=== PATIENT | male | born 1960 | race Caucasian/White ===

== ENCOUNTER → 2023-02-01 08:14 | Outpatient (REF) | payer OTHER, SELFPAY | LOC: ANHLAB 08:14 | PROVIDERS: PCP Family Medicine; Visit Provider Plastic Surgery | DX: C44.629 Squamous cell carcinoma of skin of left upper limb, including shoulder (principal); L82.1 Other seborrheic keratosis | CPT/HCPCS: 88305 ==

== ENCOUNTER 2024-03-22 05:50 | Day surgery (SDC) | payer OTHER, SELFPAY ==
[2024-01-20 15:17] VITALS: BMI 29.0
[2024-03-05 11:16] VITALS: BMI 29.4
--- NOTE | 2024-03-21 15:02 | P.PNAN_ITS ---
Anes - Initial Pre Proc Eval Procedure: Operation Date: 03/22/24 07:30 Proposed Procedures p Diagnostic Colonoscopy - Juan Antonio Morse MD Date/Time: 03/21/24 15:02 Surgeon: Juan Antonio Morse MD Pre Op Diagnosis: Personal HX of Colon Polyps. Family HX of Colon Patient Data Age: 63 Gender: M Height: 1.73 m Weight: 87.8 kg Allergies Allergy/AdvReac Type Severity Reaction Status Date / Time No Known Allergies Allergy Mild Verified 03/22/24 06:25 Home Medications ?Medication ?Instructions ?Recorded ?Confirmed ?Type fqanvndh-hmwh-fodfp acid 400 1 tablet PO DAILY 10/25/22 03/22/24 History mcg-lycopene 300 mcg-ginkgo 120 mg tablet (One-A-Day Men's 50 Plus (with ginkgo)) omeprazole 20 mg capsule,delayed 20 mg PO DAILY PRN Acid Reflux 03/05/24 03/22/24 History release atenolol 50 mg tablet 50 mg PO DAILY #90 tabs 03/21/24 03/22/24 Rx benazepril 20 mg tablet (Lotensin) 20 mg PO DAILY #90 tabs 03/21/24 03/22/24 Rx rosuvastatin 20 mg tablet 20 mg PO DAILY #90 tabs 03/21/24 03/22/24 Rx Patient hx anesthesia problems: none Family hx anesthesia problems: none Results Review: All pre-operative results and documents have been reviewed as part of the pre-op erative evaluation. [facility] Past Medical History Medical History (Updated 03/21/24 @ 15:03 by Will Gregory DO) History of skin cancer Mixed hyperlipidemia Essential (primary) hypertension Changing skin lesion BMI 28.0-28.9,adult BMI 29.0-29.9,adult Screening for prostate cancer Family History Family History Father Hypertension Malignant neoplasm of prostate Dialysis patient Sibling Hypertension Carcinoma of colon Epiglottitis Mother Carcinoma of colon Other Family history of hypercholesterolemia Social History Social History Smoking status: Never smoker Second hand tobacco smoke exposure: No Alcohol intake: current Drinks per week: 6 Alcohol use details: beer Substance use: never Substance use type: does not use Lack of Transportation: No Lack of Food: Never True Current Housing: I Have Housing Concerned About Future Housing: No Difficulty Paying Gas/Electric Bills: No Difficulty Paying for Meds: No Currently Unemployed: No Education: High School Diploma/GED Difficulty w/ Childcare or Family Care: No Living arrangements: with family Occupation/Education: retired 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 Gender identity (if verbalized by the patient): Male Spiritual care concerns: No Anes - Eval Final PreProcedure Day of Procedure 03/21/24 15:02 Patient weight: overweight Heart: regular rate and rhythm Lungs: clear to auscultation Airway: Mallampati scale class II Neurological: alert and oriented Last oral intake: >/= 8 hours ASA classification: II Emergent: no Anesthetic plan: proceed Anesthesia type and monitoring: general GIVS and standard monitoring Results Review: All pre-operative results and documents have been reviewed as part of the pre- operative evaluation. Informed Consent: The patient's anesthetic plan and its attendant risks and benefits were discussed with the patient/family/POA. Questions were solicited and answers provided to the satisfaction of the patient/family/POA.
[2024-03-22 06:27] VITALS: BP 117/79; PULSE 65; RESP 16; TEMP 36.6; O2SAT 98; BMI 29.0
[2024-03-22] MEDS: LACTATED RINGERS 1,000 ML 150 ML IV CONT (06:45)
--- NOTE | 2024-03-22 07:16 | PM.HPGS ---
History of Present Illness History of Present Illness Consent: Risks, benefits, and alternatives have been discussed and questions answered. Patient agrees to proceed with procedure. Chief complaint: Personal HX of Colon Polyps. Family HX of Colon Narrative: Mohit Her is a 63 year old male colonoscopy. Patient has a history of this most recently 2017. Family history is significant both brother and mother have had colon cancer. Patient reports his own weight appetite and bowel movements are normal. He denies abdominal pain. Patient has had no bleeding. Review of Systems Review of Systems: All systems reviewed & are unremarkable except as noted in HPI and below PMFSH Past Medical History Medical History (Updated 03/22/24 @ 07:18 by Juan Antonio Morse MD) History of skin cancer Mixed hyperlipidemia Essential (primary) hypertension Changing skin lesion BMI 28.0-28.9,adult BMI 29.0-29.9,adult Screening for prostate cancer Family History Family History Father Hypertension Malignant neoplasm of prostate Dialysis patient Sibling Hypertension Carcinoma of colon Epiglottitis Mother Carcinoma of colon Other Family history of hypercholesterolemia Social History Social History Smoking status: Never smoker Second hand tobacco smoke exposure: No Alcohol intake: current Drinks per week: 6 Alcohol use details: beer Substance use: never Substance use type: does not use Lack of Transportation: No Lack of Food: Never True Current Housing: I Have Housing Concerned About Future Housing: No Difficulty Paying Gas/Electric Bills: No Difficulty Paying for Meds: No Currently Unemployed: No Education: High School Diploma/GED Difficulty w/ Childcare or Family Care: No Living arrangements: with family Occupation/Education: retired 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 Gender identity (if verbalized by the patient): Male Spiritual care concerns: No Meds Home Medications and Allergies Home Medications ?Medication ?Instructions ?Recorded ?Confirmed ?Type xrdpusrf-vzup-chami acid 400 1 tablet PO DAILY 10/25/22 03/22/24 History mcg-lycopene 300 mcg-ginkgo 120 mg tablet (One-A-Day Men's 50 Plus (with ginkgo)) omeprazole 20 mg capsule,delayed 20 mg PO DAILY PRN Acid Reflux 03/05/24 03/22/24 History release atenolol 50 mg tablet 50 mg PO DAILY #90 tabs 03/21/24 03/22/24 Rx benazepril 20 mg tablet (Lotensin) 20 mg PO DAILY #90 tabs 03/21/24 03/22/24 Rx rosuvastatin 20 mg tablet 20 mg PO DAILY #90 tabs 03/21/24 03/22/24 Rx Allergies Allergy/AdvReac Type Severity Reaction Status Date / Time No Known Allergies Allergy Mild Verified 03/22/24 06:25 Vital Signs Vital Signs - 24 hr 03/22/24 06:27 Temperature 97.9 F Pulse Rate 65 Respiratory Rate 16 Blood Pressure 117/79 Pulse Oximetry 98 Oxygen Delivery Room Air Exam Narrative: Physical exam reveals patient to be alert. Vital signs stable. HEENT exam is unremarkable. Patient is anicteric. His lungs are clear to auscultation and to percussion. Is without murmur or extra sounds. Abdomen sounds are present soft nontender with no organomegaly. Digital external rectal exam normal. 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 Plan for surveillance colonoscopy now and at least every 5 years. (2) Family history of colon cancer in mother: Code(s): Z80.0 - Family history of malignant neoplasm of digestive organs Status: Acute Assessment and Plan: Patient's mother and brother both have had colon cancer. Suggest follow-up colonoscopy at 5 year intervals.
[2024-03-22 07:46] VITALS: BP 108/64; PULSE 69; RESP 16; O2SAT 93
[2024-03-22 07:56] VITALS: BP 95/64; PULSE 59; RESP 16; O2SAT 96
[2024-03-22 08:06] VITALS: BP 96/74; PULSE 61; RESP 16; O2SAT 96
--- NOTE | 2024-03-22 10:43 | WPDANESPN ---
Anes - Prog Note Post-Op Date/Time: 03/22/24 10:43 Cardiovascular status: normal Respiratory status: normal Airway patency: baseline Mental status: baseline Post-Op hydration status: normal Vital Signs: Last Vital Signs Temp 36.6 C 03/22/24 06:27 Pulse 61 03/22/24 08:06 Resp 16 03/22/24 08:06 BP 96/74 L 03/22/24 08:06 Pulse Ox 96 03/22/24 08:06 O2 Del Method Room Air 03/22/24 08:06 Pain Score (VAS): 0 I/O: Intake & Output 03/21/24 03/22/24 03/22/24 23:59 07:59 15:59 Intake Total 200 150 Balance 200 150 Post-procedural complaints: none Patient Feedback: Patient satisfied with anesthetic care. Other Findings: Patient vital signs back to baseline. Patient denies nausea and vomiting. Patient's pain under control. Patient OK for discharge.
== END 2024-03-22 08:10 | disposition home or self-care (01) ==
PROVIDERS: PCP Family Medicine; Visit Provider Internal Medicine Gastroenterology
PROC: 0DJD8ZZ Inspection of Lower Intestinal Tract, Via Natural or Artificial Opening Endoscopic (ICD-10-PCS; CPT 45378; principal; 2024-03-22 07:30)
DX: Z86.0100 Personal history of colon polyps, unspecified (principal); D12.3 Benign neoplasm of transverse colon; K64.8 Other hemorrhoids
CPT/HCPCS: 45385

== ENCOUNTER 2024-03-22 07:00 | Outpatient (NON) | payer OTHER, SELFPAY | END 2024-03-22 07:01 | disposition home or self-care (01) | LOC: ANHLAB 03-23 07:59 | PROVIDERS: PCP Family Medicine; Visit Provider Internal Medicine Gastroenterology | DX: D12.3 Benign neoplasm of transverse colon (principal); Z80.0 Family history of malignant neoplasm of digestive organs | CPT/HCPCS: 88305 ==

== ENCOUNTER 2024-12-06 09:36 | Outpatient (CLI) | payer OTHER, SELFPAY ==
--- NOTE | ~2024-12-06 | XR_ITS ---
EXAM/ PROCEDURE: XR shoulder LT min 2V - 12/06/2024 9:41 CDT HISTORY: 64 years old Male with M25.512 - Pain in left shoulder COMPARISON: None available TECHNIQUE: Four view(s) FINDINGS/ IMPRESSION: There are no fractures or dislocations.Joint space narrowing, subchondral sclerosis, subchondral cyst formation and osteophyte formation, compatible with mild osteoarthritis. Reviewed, dictated and finalized at location N.
== END 2024-12-06 09:37 | disposition home or self-care (01) ==
LOC: MICIMG 09:37
PROVIDERS: PCP Family Medicine; Visit Provider Nurse Practitioner Family
DX: M25.512 Pain in left shoulder (principal)
CPT/HCPCS: 73030